=== PATIENT | male | born 1960 | race Caucasian/White ===

== ENCOUNTER 2022-09-16 15:53 | Outpatient (REF) | payer MEDICARE, MEDICAID, SELFPAY ==
[2022-09-16 17:56] LABS: Anion Gap 14 (12-20); Blood Urea Nitrogen 12 mg/dL (9-16); Calcium 9.1 mg/dL (8.4-10.2); Carbon Dioxide 25 mmol/L (22-29); Chloride 107 mmol/L (96-108); Estimated Glomerular Filt Rate > 60; Glucose Random 140 mg/dL (60-115); Potassium 4.2 mmol/L (3.3-5.1); Sodium 142 mmol/L (135-145)
[2022-09-16 18:14] LABS: T4 Thyroxine 6.6 ug/dL (4.5-12.0); Thyroid Stimulating Hormone 1.34 uIU/mL (0.32-4.0)
[2022-09-16 18:20] LABS: Vitamin B12 779 pg/mL (200-900)
== END 2022-09-16 15:54 | disposition home or self-care (01) ==
LOC: HO.LAB 15:53
PROVIDERS: Visit Provider Psychiatry & Neurology Neurology
DX: G31.84 Mild cognitive impairment of uncertain or unknown etiology (principal)
CPT/HCPCS: 36415; 80048; 82607; 84436; 84443